=== PATIENT | female | born 1985 | race Caucasian/White ===

== ENCOUNTER 2017-02-28 14:10 | Emergency (ER) | payer OTHER ==
[~2017-02-28 14:10] MED LIST: IOPAMIDOL (ISOVUE 370) 100 ML BTL IV ONE
--- NOTE | 2017-02-28 14:53 | EDPHY ---
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 She began having low back pain around 1.5 weeks ago, and visited a chiropractor for relief last Saturday, one week ago. She reports he did some manipulations of her upper back and legs/ pelvis. She denies any neck manipulations. Following this appointment, she became very lightheaded, as if she were going to pass out. Since that time, she has felt a pulsing sensation in her brain along with continued feeling of dizziness/ lightheadedness. She denies associated sever headache. Saturday, she visited [facility] for evaluation, and states she had a normal unenhanced head CT at that time, and was given fluids. She was evaluated by another provider the next day, who suggested she may have a viral syndrome. This morning, she called her primary care provider with ongoing symptoms and arrangements where made for a CT angiogram of head and CT angiogram of the neck. Patient was referred to the ED after the CT scans demonstrated a basilar artery emboli. Patient denies any headache currently. She does continue to complain a fullness and "lightheadedness ". She denies any numbness or tingling. She denies any word-finding difficulties. She does not take any estrogen supplements. No control pills. No family history of thromboembolic disease. No drug use. Nonsmoker. No recent significant dehydration or significant illness. Patient did run a 5K the Saturday before she developed her back pain but reports feeling well following that. REVIEW OF SYSTEMS: Aside from elements discussed in the HPI, a comprehensive 10-point review of systems was reviewed and is negative. PAST MEDICAL HISTORY: Patient denies. SOCIAL HISTORY: Nonsmoker. VITAL SIGNS Reviewed by me. GENERAL: Well-developed, well-nourished, somewhat anxious, concerned regarding her diagnosis.. HEENT: Atraumatic. Eyes: PERRL, EOMI, no nystagmus. No icterus. No injection. Mouth: moist mucous membranes. No erythema or lesions. Neck: No meningitis. Nontender to palpation. No adenopathy. No carotid bruits auscultated. Negative Kernig's. Negative Brudzinski's. No meningismus. LUNGS: Clear to auscultation bilaterally, no wheezes, rhonchi or rales. CARDIAC: Regular rate and rhythm, no rubs, murmurs or gallops. ABDOMEN: Soft, nontender, nondistended, bowel sounds normal. BACK: No CVA tenderness. EXTREMITIES: No trauma. No edema. Range of motion is normal throughout. NEURO: Alert and oriented, cranial nerves II through XII are intact. Motor strength 5 over 5 in all major muscle groups. Sensation intact to light touch. Normal gait. SKIN: Warm and dry, no rash. PSYCHIATRIC: Normal mentation, no agitation. Portions of this note were transcribed by a medical hospital sales. I, Dr Ria Finnegan , personally performed a history, physical exam, medical decision making, and confirmed the accuracy of the information in the transcribed note. ED Course: CT angiogram head/neck shows small filling defect in the proximal basilar artery , concerning for embolus. Plan to consult with [facility]. 14:[address] North, neurologist at [facility]. Plan to transfer to [facility] neuro ICU by ground critical transport. No further testing here requested. 15:[address] Curiel, radiologist. While awaiting the arrival of ground transportation, patient did receive an MRI of her brain without contrast. Full-dose Lovenox was administered. Patient remained neurologically intact prior to transport. Patient's MRI shows no stroke on diffusion-weighted images. Patient was transferred to [facility], via [facility] critical care ground transport. MDM: After history was obtained, and the physical exam performed, a differential for this patient's symptom complex was considered including, but not limited to, venous thromboembolic disease, vertebral artery dissections, acute stroke, subarachnoid hemorrhage, migraine headache, tension headache and infectious causes such as meningitis, sinusitis, encephalitis. Critical care time spent by meDr. Finnegan exclusively with this patient was 40 minutes, exclusive of PA time and exclusive of procedures. The organ system at risk was neurologic and I gave anticoagulants, obtain further imaging studies , and transferred to the neuro ICU at [facility] to prevent worsening of the patients condition. Critical care time included obtaining history, performing a physical exam, bedside monitoring of interventions, collecting and interpreting tests and discussion with consultants but not including time spent performing procedures. - Data Points Imaging: Discussed imaging studies w/ call center nurse Radiologist Laboratory Results: Laboratory Results 02/28/17 15:02 02/28/17 15:02 Medications Given: Discontinued Medications Enoxaparin Sodium (Lovenox) 60 mg SC EDNOW ONE Stop: 02/28/17 16:46 Last Admin: 02/28/17 16:45 Dose: 60 mg General Initial Vital Signs: Initial Vital Signs Temperature (C) 36.5 C 02/28/17 14:21 Heart Rate 95 02/28/17 14:21 Respiratory Rate 16 02/28/17 14:21 Blood Pressure 128/94 H 02/28/17 14:21 O2 Sat (%) 98 02/28/17 14:21 O2 Delivery Mode Room Air Allergies/Adverse Reactions: TDAP Allergy (Uncoded 02/28/17 14:25) Home Medications: Medication Instructions Recorded Sertraline HCl [Zoloft 25mg (*)] 02/28/17 Departure - Departure Disposition: Acute Care Hospital [facility] Clinical Impression: Basilar artery embolism, Lightheadedness Condition: Fair Referrals: ADAM PLUNKETT [Primary Care Provider] - As per Instructions Report Scribed for: Ria Finnegan Report Scribed by: Marcela Gabriel Date of Report: 02/28/17 Time of Report: 14:56 Physician Review and Approval Statement: Portions of this note were transcribed by a medical hospital sales. I personally performed a history, physical exam, medical decision making, and confirmed accuracy of information the transcribed note.
[2017-02-28 15:12] LABS: % IMMATURE GRANULYOCYTES 0.2 % (0.0-1.1); ABSOLUTE IMMATURE GRANULOCYTES 0.02 10^3/uL (0.00-0.10); ADD DIFF? NO; ADD MORPH? NO; ADD SCAN? NO; ATYPICAL LYMPHOCYTE FLAG 10 (0-99); FRAGMENT RBC FLAG 0 (0-99); HEMATOCRIT 46.5 % (38.0-47.0); HEMOGLOBIN 16.1 g/dL (12.6-16.3); LEFT SHIFT FLG 0 (0-99); LIPEMIA HEMOLYSIS FLAG 90 (0-99); MEAN CELL HEMOGLOBIN 33.4 pg (27.9-34.1); MEAN CELL HEMOGLOBIN CONCENTR. 34.6 g/dL (32.4-36.7); MEAN CELL VOLUME 96.5 fL (81.5-99.8); PLATELET CLUMPS FLAG 0 (0-99); PLATELET COUNT 227 10^3/uL (150-400); RED BLOOD CELL COUNT 4.82 10^6/uL (4.18-5.33); RED CELL DISTRIBUTION WIDTH 11.5 % (11.5-15.2)
[2017-02-28 15:32] LABS: ANION GAP 15 mEq/L (8-16); CALCIUM 10.2 mg/dL (8.5-10.4); CARBON DIOXIDE 20 mEq/l (22-31); CHLORIDE 103 mEq/L (97-110); CREATININE 0.7 mg/dL (0.6-1.0); GLOMERULAR FILTRATION RATE > 60; GLUCOSE 87 mg/dL (70-100); SODIUM 138 mEq/L (134-144)
[2017-02-28 15:56] VITALS: RESP 18; TEMP 99.1
[2017-02-28] MEDS ORDERED: ENOXAPARIN 60 MG/0.6 ML SYR SC ONE (16:45)
[2017-02-28 16:58] VITALS: BP 121/75; PULSE 102; O2SAT 100
== END 2017-02-28 16:45 | disposition short-term general hospital (02) ==
LOC: EDSTATUS 18:00
DX: I65.1 Occlusion and stenosis of basilar artery (principal)
CPT/HCPCS: J1650; Q9967